=== PATIENT | female | born 1960 | race Caucasian/White ===

== ENCOUNTER 2016-08-07 12:37 | Observation (INO) | payer OTHER ==
[2016-08-07] VITALS (9 sets, daily range): BP systolic 116–134; BP diastolic 69–91; PULSE 55–67; RESP 16–17; O2SAT 95–97
[~2016-08-07] VITALS: Ht 172.7 cm; Wt 102.7 kg
[2016-08-07 13:08] LABS: BASOPHILS % (AUTO) 0.4 % (0-3); EOSINOPHILS % (AUTO) 3.8 % (0-5); MONOCYTES % (AUTO) 6.3 % (4-12); Mean Corpuscular Hemoglobin 30.4 pg (27.0-35.0); Mean Corpuscular Volume 87.8 fL (81-100); NEUTROPHILS % (AUTO) 43.8 % (40-74); Platelet Count 202 bil/L (150-400)
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
[2016-08-07 13:32] LABS: Magnesium 1.9 mg/dL (1.6-2.6)
[2016-08-07 13:38] LABS: TROPONIN T < 0.010 ug/L (0.0-0.011)
--- NOTE | 2016-08-07 13:46 | DRSVH ---
PROCEDURE: CT BRAIN WITHOUT CONTRAST ([id number]) INDICATIONS: head injury, difficulty speaking TECHNIQUE: Noncontrast 4.5 mm thick angled axial sections acquired from the foramen magnum to the vertex, with c oronal reformats. COMPARISON: None. FINDINGS: Image quality: Excellent. CSF spaces: Basal cisterns are patent. No extra-axial fluid collections. The ventricles are symmet louise in size and shape. Brain: No intracranial bleeds or masses. There is cerebral volume loss for age, with resultant vent ricular and sulcal prominence. There are periventricular and deep white matter chronic small vessel ischemic changes. There is intracranial internal carotid artery atherosclerosis. Skull and face: Calvarium and visualized facial bones appear intact, without suspicious lesions. Sinuses: Visualized sinuses and mastoids are clear. IMPRESSION: No acute intracranial abnormality. Dictated by: Dedra Teague M.D. on 08/07/2016 at 13:44 Approved by: Dedar Teague M.D. on 08/07/2016 at 13:44
--- NOTE | 2016-08-07 13:52 | DRSVH ---
PROCEDURE: X-RAY CHEST ONE VIEW, PORTABLE ([id number]) INDICATIONS: CP TECHNIQUE: One view of the chest was acquired. COMPARISON: [facility], CR, CHEST 2VW, 07/25/2010, 10:08. FINDINGS: Surgical changes and devices: None. Lungs and pleura: No pleural effusions or pneumothorax. Lungs are clear. Mediastinum: Mediastinal contours appear normal. Heart size is normal. Bones and chest wall: No suspicious bony lesions. Overlying soft tissues appear unremarkable. IMPRESSION: No acute process. Dictated by: Dedra Teague M.D. on 08/07/2016 at 13:49 Approved by: Dedra Teague M.D. on 08/07/2016 at 13:50
[2016-08-07] MEDS ORDERED: LEVO112T4 PO (14:35)
[2016-08-07] MEDS ORDERED: ACET-2605 PO (14:36)
[2016-08-07] MEDS ORDERED: Ondansetron 2 mg/mL 2 mL Inj IVPUSH PRN (15:45)
--- NOTE | 2016-08-07 15:53 | PCM.HPMED ---
Subjective Date of Service August 07, 2016 Primary Provider: Admitting Physician: Zeeshan Orozco MD Primary Care Physician: Joshua Beck MD Attending Physician: Zeeshan Orozco MD Chief Complaint: Presyncopal episode History of Present Illness: 56-year-old female with history of gastric sleeve and half years ago, hypothyroidism presented with presyncopal episode today. Patient was walking at the grocery store looking for fruits, significant felt "hot flushes, butterfly in the stomach", nausea, mild SOB, unusual sensation, blurry vision, lightheadedness. Patient was try to get some help, was not able to speak out, episode resolved after she got some rest, likely lasted 10min, brought by EMS to ED. pt remembered whole episode, didn't loose consciousness. Patient denied chest pain, tinnitus. pt had less severe but similar lightheadedness few times / week for the past 4weeks. Pt never had LOC. pt admitted that her work has been more stressful these days. pt denied postural dizziness, pt was not exertional when these episodes happened. ROS: denied fever, chills, n/v/c. has regular diarrhea 5-6times/d since gastric sleeve surgery, not increased recently, no recent travel, sick contacts, no urinary complaints. ED VSS, labs were unremarkable. EKG NSR, no pauses/blocks. CTH no acute findings. per family at the bedside, stated that pt was a bit confused earlier in ED but not now, pt currently c/o mild lightheadedness, mild difficulty of expressing her words. was also noted generalized tremors on hands, which also improved during ED course. Review of Systems: Pertinent positives as noted in history of present illness. All other systems were reviewed and are negative Allergies Coded Allergies: Contrast Media (Verified Allergy, Severe, Anaphylaxis, 08/07/16) Home Medications Levothyroxine Excedrin P.M. for sleeping PMH As described above Surgical History Gastric sleeve surgery Family History Mother and father had COPD, mother had CHF, at 60s Social History Hx Alcohol Use: No Hx Substance Use: No Hx Tobacco Use: Yes (quit 2000, smoked 1ppd for 10yrs) Smoking Status: Former Smoker Exam Vital Signs Vital Sign - Last Date Time Temp Pulse Resp B/P Pulse Ox O2 Delivery O2 Flow Rate FiO2 08/07/16 14:44 64 16 132/77 96 Room Air 08/07/16 12:42 36.5 Exam NAD, comfortably laying down on the bed no JVD, MMM, no LAD RRR, nl s1, s2 no mrg CTAB, no w,c S,ND,NT,normoactive BS+ warm, no edema, pulses 2/2 Neuro:speech coherent, fluent, AAOx3 PERRLA, EOMI, symmetric face, no uvulae tongue deviation, able shrug shoulders equally able rotate neck equally on both sides FTN intact, motor 5/5 throughout, sensory intact to dull touch Lab and Diagnostics Result Diagram: 08/07/16 1243 08/07/16 1243 X-Rays, CTs and MRIs PROCEDURE: X-RAY CHEST ONE VIEW, PORTABLE ([id number]) INDICATIONS: CP TECHNIQUE: One view of the chest was acquired. COMPARISON: [facility], CR, CHEST 2VW, 07/25/2010, 10:08. FINDINGS: Surgical changes and devices: None. Lungs and pleura: No pleural effusions or pneumothorax. Lungs are clear. Mediastinum: Mediastinal contours appear normal. Heart size is normal. Bones and chest wall: No suspicious bony lesions. Overlying soft tissues appear unremarkable. IMPRESSION: No acute process. Dictated by: Dedra Teague M.D. on 08/07/2016 at 13:49 Approved by: Dedra Teague M.D. on 08/07/2016 at 13:50 12-lead ECG NSR Assessment & Plan Acute, active Pre-syncopal episodes, POA, ddx: History is highly suspicious for vasovagal syncope vs cardiac arrhythmia. CTH/EKG WNL, neuro exam non-focal so far. -telemetry -MR stroke protocol -TTE -TSH, Ft4 -a1c, lipid panel for risks stratification, -s/p [id number], continue 81mg daily Chronic, stable hypothyroidism, continue Levothyroxine, check euthyroid state Dispo: Patient is admitted under observation status with expectation that she will be discharged within 24-48 hours, diet:cardiac dvt ppx:LMWH Full code Time spent 35min Zeeshan Orozco MD August 07, 2016 15:53
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
--- NOTE | 2016-08-07 17:11 | NUR ---
Diet waiver Pt passed RN swallow screen in ED this afternoon. Per stroke protocol, pt placed on a puree, HTL diet. Pt req to sign a waiver to allow a more generalized diet. Rationale explained to pt on why a puree/HTL diet ordered and stroke protocol. Also explained risks of choosing a general diet without being cleared by a speech pathologist. Pt is A&O, understands risk and chooses to sign waiver. Pt req ice water, drinking with no indicators of coughing/choking. Care is ongoing.
--- NOTE | 2016-08-07 22:49 | NUR ---
Activity On initial assessment, patient is alert and oriented x4 with no apparent deficits. Patient states that she does not feel confused as she did earlier in the day. Requested patient to use call light when ambulating to BR. VSS. Patient resting comfortably. Call light within reach. Care continues.
[2016-08-08 04:35] VITALS: BP 122/71; PULSE 62; RESP 17; O2SAT 97
[2016-08-08] MEDS ORDERED: ASPI81TA3 PO (08:16)
--- NOTE | 2016-08-08 10:49 | PCM.DIMED ---
Discharge Instructions Date of Service August 08, 2016 Dates of Hospitalization August 07, 2016 at 15:16 Discharge Diagnosis Discharge Diagnosis presyncopal episode, likely due to vasovagal vs TIA Diet Discharge Diet: No restrictions Activity Discharge Activity: No restrictions Call your provider Call your provider for: Shortness of breath, Chest pain Patient Instructions Patient Instructions You were hospitalized with symptoms concerning for stroke, monitored closely in the hospital. Your symptoms were completely resolved during hospitalization. MRI of brain and MRA of your head and neck were obtained, which didn't show any signs of stroke. Please note that aspirin was started, take 81mg daily for prevention of stroke. please stop taking if you notice black or bloody stools Follow-up Provider: Josuha Beck MD Follow-up with PCP in: 2 weeks Zeeshan Orozco MD August 08, 2016 10:49 Zeeshan Orozco MD August 08, 2016 10:49
--- NOTE | 2016-08-08 11:06 | DRSVH ---
PROCEDURE: MRI STROKE PROTOCOL ([id number]) Pre- and post-contrast brain MRI, non-contrast brain MR angiogram, pre- and postcontrast neck MR katherine ogram INDICATIONS: presyncopal episode TECHNIQUE: Brain: Noncontrast axial T1 spin echo, axial T2 fast spin echo, sagittal and axial FLAIR, coronal T2 fast spin echo, axial gradient echo, axial diffusion and ADC through the brain. After the administr ation of contrast, axial 3D VIBE of the cranial vasculature and brain. Brain MRA: Non-contrast 3-D time of flight MR angiogram, with multiple qpzcjum-vkejqxjoy-zmtdbjtjma (MIP) reformats performed. Neck MRA: Axial and sagittal TruFISP through the neck. Coronal dynamic MR angiogram during administ ration of contrast in the arterial and venous phases, with 3-dimenstional jwvqntc-ifputxvfb-wyfeniedu n (MIP) reformats constructed from subtraction images. COMPARISON: None. FINDINGS: Image quality: Excellent. BRAIN: CSF spaces: Ventricles are normal in size and shape. Basal cisterns are patent. No extra-axial flu id collections. Brain: No intracranial bleeds or mass effects. Reyez-white matter interface is normal. Diffusion we ighted images show no acute ischemic insults. Brainstem appears normal. Normal intravascular flow v oids are present. No abnormal intracranial enhancement. Skull and face: Calvarial marrow signal is normal. Orbits appear normal. Sinuses: Mild mucosal thickening noted in the right maxillary sinus. The mastoids are clear. BRAIN MR ANGIOGRAM: Anterior circulation: Intracranial internal carotid arteries are normal in size and enhancement. Th e flow within the paired anterior cerebral arteries is normal and symmetric. The flow within the mid dle cerebral arteries is normal and symmetric. The anterior communicating artery is seen. No stenos es, occlusions, or aneurysms. Posterior circulation: The visualized portions of the vertebral arteries demonstrate normal caliber, and join to form a normal appearing basilar artery. The flow within the posterior cerebral arteries is normal and symmetric. The left posterior cerebral artery has a origin which is a congenital anatomic variant. No stenoses, occlusions, or aneurysms. NECK MR ANGIOGRAM: Carotids: Great vessels demonstrate a conventional anatomy as they arise from the aortic arch. The origins of the common carotid arteries appear patent. The calibers and courses of both common caroti d arteries are normal. The bifurcation regions appear normal bilaterally. Mild atherosclerotic irreg ularity noted in the origins of the right internal carotid artery which causes less than 50% stenosis . Origin of the left internal carotid artery appears fully patent parapharyngeal loops noted in the c ervical segments of the internal carotid arteries bilaterally.. Posterior circulation: The origins of the vertebral arteries appear patent. Atherosclerotic irregula rity noted in the origin of the right vertebral artery which causes moderate stenosis. Origin the lef t vertebral artery appears fully patent. More superior portions of both vertebral arteries demonstra te normal course and caliber, and join to form a normal appearing basilar artery. Miscellaneous: Subclavian arteries appear patent. Pre-contrast images through the neck show no soft tissue abnormalities. IMPRESSION: BRAIN MRI: 1. No acute intracranial disease process. 2. No areas of acute or chronic infarction. 3. No abnormal postcontrast enhancement. BRAIN MR ANGIOGRAM: Negative examination. NECK MR ANGIOGRAM: 1. Less than 50% stenosis of the origin of the right internal carotid artery. 2. The left internal carotid artery is fully patent. 3. Moderate stenosis of the origin of the right vertebral artery. 4. The left vertebral artery is fully patent. The estimate of stenosis included in the report of the imaging study was calculated using the NASCET method Dictated by: Manuela Ross MD, PhD on 08/08/2016 at 10:47 Approved by: Manuela Ross MD, PhD on 08/08/2016 at 11:04
--- NOTE | 2016-08-08 11:27 | NUR ---
Discharge Pt d/c'd home at 1125. Reviewed d/c instructions w/ patient and answered all questions. IV d/c'd intact by SN1. Pt denied offer of w/c to her MIL's POV and left w/ hard copy of RX and all belonging. VSS, strong steady gait.
--- NOTE | 2016-08-08 12:13 | NUR ---
Social Work- Screen Note/Discharge Data: EMR reviewed. Pt is a 56 year old female admitted 08/07/16 under observation for TIA, pre-syncope per H&P. Pt received an MRI this morning. Pt was determined to be medical stable for discharge and discharged this morning prior to this note. Per chart review, pt resides in [place] with her spouse. Pt is independent at baseline. SW received notification from RN regarding pt's questions about her stroke protocol and insurance covering her medically necessary tests (MRI vs. carotid ultrasound) under stroke protocol. SW spoke with UR RN regarding this information, UR RN informed SW that whichever tests are ruled as medically necessary (either the MRI or the ultrasound) insurance will view as stroke protocol and bill as such. SW attempted to inform pt of this information when known but she was receiving pt care and then out of the room. Floor RN agreeable to updating pt regarding this information. Pt has no DPOA on file, per chart review pt declined this information when offered at admission. Pt discharged home via POV, no discharge needs identified. Assessment: Pt who is independent at baseline. Plan: Pt discharged home via POV, no discharge needs identified. Agatha Castle, [employer]
--- NOTE | 2016-08-08 15:10 | PCM.DC.MED ---
Discharge Summary Date of Service August 08, 2016 Dates of Hospitalization Date of Hospital Admission August 07, 2016 at 15:16 Date of Discharge: August 08, 2016 Providers: Admitting Physician: Zeeshan Tsai MD Primary Care Physician: Joshua Beck MD Attending Physician: Zeeshan Tsai MD Diagnosis at Time of Discharge Diagnosis at Time of Discharge Presyncopal episode, highly likely due to vasovagal, probable TIA Hypothyroidism Procedures XRay, CTs & MRIs PROCEDURE: MRI STROKE PROTOCOL ([id number]) Pre- and post-contrast brain MRI, non-contrast brain MR angiogram, pre- and postcontrast neck MR angiogram INDICATIONS: presyncopal episode TECHNIQUE: Brain: Noncontrast axial T1 spin echo, axial T2 fast spin echo, sagittal and axial FLAIR, coronal T2 fast spin echo, axial gradient echo, axial diffusion and ADC through the brain. After the administration of contrast, axial 3D VIBE of the cranial vasculature and brain. Brain MRA: Non-contrast 3-D time of flight MR angiogram, with multiple maximum- intensity-projection (MIP) reformats performed. Neck MRA: Axial and sagittal TruFISP through the neck. Coronal dynamic MR angiogram during administration of contrast in the arterial and venous phases, with 3-dimenstional sqmwbgo-tafjvrxbw-lpsverkooy (MIP) reformats constructed from subtraction images. COMPARISON: None. FINDINGS: Image quality: Excellent. BRAIN: CSF spaces: Ventricles are normal in size and shape. Basal cisterns are patent. No extra-axial fluid collections. Brain: No intracranial bleeds or mass effects. Reyez-white matter interface is normal. Diffusion weighted images show no acute ischemic insults. Brainstem appears normal. Normal intravascular flow voids are present. No abnormal intracranial enhancement. Skull and face: Calvarial marrow signal is normal. Orbits appear normal. Sinuses: Mild mucosal thickening noted in the right maxillary sinus. The mastoids are clear. BRAIN MR ANGIOGRAM: Anterior circulation: Intracranial internal carotid arteries are normal in size and enhancement. The flow within the paired anterior cerebral arteries is normal and symmetric. The flow within the middle cerebral arteries is normal and symmetric. The anterior communicating artery is seen. No stenoses, occlusions, or aneurysms. Posterior circulation: The visualized portions of the vertebral arteries demonstrate normal caliber, and join to form a normal appearing basilar artery. The flow within the posterior cerebral arteries is normal and symmetric. The left posterior cerebral artery has a origin which is a congenital anatomic variant. No stenoses, occlusions, or aneurysms. NECK MR ANGIOGRAM: Carotids: Great vessels demonstrate a conventional anatomy as they arise from the aortic arch. The origins of the common carotid arteries appear patent. The calibers and courses of both common carotid arteries are normal. The bifurcation regions appear normal bilaterally. Mild atherosclerotic irregularity noted in the origins of the right internal carotid artery which causes less than 50% stenosis. Origin of the left internal carotid artery appears fully patent parapharyngeal loops noted in the cervical segments of the internal carotid arteries bilaterally.. Posterior circulation: The origins of the vertebral arteries appear patent. Atherosclerotic irregularity noted in the origin of the right vertebral artery which causes moderate stenosis. Origin the left vertebral artery appears fully patent. More superior portions of both vertebral arteries demonstrate normal course and caliber, and join to form a normal appearing basilar artery. Miscellaneous: Subclavian arteries appear patent. Pre-contrast images through the neck show no soft tissue abnormalities. IMPRESSION: BRAIN MRI: 1. No acute intracranial disease process. 2. No areas of acute or chronic infarction. 3. No abnormal postcontrast enhancement. BRAIN MR ANGIOGRAM: Negative examination. NECK MR ANGIOGRAM: 1. Less than 50% stenosis of the origin of the right internal carotid artery. 2. The left internal carotid artery is fully patent. 3. Moderate stenosis of the origin of the right vertebral artery. 4. The left vertebral artery is fully patent. The estimate of stenosis included in the report of the imaging study was calculated using the NASCET method Dictated by: Manuela Ross MD, PhD on 08/08/2016 at 10:47 Approved by: Manuela Ross MD, PhD on 08/08/2016 at 11:04 PROCEDURE: CT BRAIN WITHOUT CONTRAST ([id number]) INDICATIONS: head injury, difficulty speaking TECHNIQUE: Noncontrast 4.5 mm thick angled axial sections acquired from the foramen magnum to the vertex, with coronal reformats. COMPARISON: None. FINDINGS: Image quality: Excellent. CSF spaces: Basal cisterns are patent. No extra-axial fluid collections. The ventricles are symmetric in size and shape. Brain: No intracranial bleeds or masses. There is cerebral volume loss for age , with resultant ventricular and sulcal prominence. There are periventricular and deep white matter chronic small vessel ischemic changes. There is intracranial internal carotid artery atherosclerosis. Skull and face: Calvarium and visualized facial bones appear intact, without suspicious lesions. Sinuses: Visualized sinuses and mastoids are clear. IMPRESSION: No acute intracranial abnormality. Dictated by: Dedra eTague M.D. on 08/07/2016 at 13:44 Approved by: Dedra Teague M.D. on 08/07/2016 at 13:44 PROCEDURE: X-RAY CHEST ONE VIEW, PORTABLE ([id number]) INDICATIONS: CP TECHNIQUE: One view of the chest was acquired. COMPARISON: [facility] [place], CR, CHEST 2VW, 07/25/2010, 10:08. FINDINGS: Surgical changes and devices: None. Lungs and pleura: No pleural effusions or pneumothorax. Lungs are clear. Mediastinum: Mediastinal contours appear normal. Heart size is normal. Bones and chest wall: No suspicious bony lesions. Overlying soft tissues appear unremarkable. IMPRESSION: No acute process. Dictated by: Dedra Teague M.D. on 08/07/2016 at 13:49 Approved by: Dedra Teague M.D. on 08/07/2016 at 13:50 ECG 12 Lead NSR Brief History HPI obtained on 08/07 56-year-old female with history of gastric sleeve and half years ago, hypothyroidism presented with presyncopal episode today. Patient was walking at the grocery store looking for fruits, significant felt "hot flushes, butterfly in the stomach", nausea, mild SOB, unusual sensation, blurry vision, lightheadedness. Patient was try to get some help, was not able to speak out, episode resolved after she got some rest, likely lasted 10min, brought by EMS to ED. pt remembered whole episode, didn't loose consciousness. Patient denied chest pain, tinnitus. pt had less severe but similar lightheadedness few times / week for the past 4weeks. Pt never had LOC. pt admitted that her work has been more stressful these days. pt denied postural dizziness, pt was not exertional when these episodes happened. ROS: denied fever, chills, n/v/c. has regular diarrhea 5-6times/d since gastric sleeve surgery, not increased recently, no recent travel, sick contacts, no urinary complaints. ED VSS, labs were unremarkable. EKG NSR, no pauses/blocks. CTH no acute findings. per family at the bedside, stated that pt was a bit confused earlier in ED but not now, pt currently c/o mild lightheadedness, mild difficulty of expressing her words. was also noted generalized tremors on hands, which also improved during ED course. Hospital Course Acute dx Pre-syncopal episodes, most likely vasovagal episode Although history was highly suspicious for vasovagal syncope, patient underwent basic syncope workups. Telemetry remained in sinus rhythms, intial CTH/EKG WNL, neuro exam was non-focal throughout. patient was given [id number], tolerated well. MR stroke protocol didn't show any signs of ischemic stroke. Given patient 's risks factors, smoking hx, probable TIA, it was recommended to continue aspirin 81mg daily. Patient was able ambulateon steady gait, non-focal on neuro exam, discharged to home Chronic dx hypothyroidism, continued Levothyroxine, in euthyroid state Exam Vital Signs (Last) Date Time Temp Pulse Resp B/P Pulse Ox O2 Delivery O2 Flow Rate FiO2 08/08/16 04:35 36.4 62 17 122/71 97 Room Air Exam NAD, comfortably laying down on the bed no JVD, MMM, no LAD RRR, nl s1, s2 no mrg CTAB, no w,c S,ND,NT,normoactive BS+ warm, no edema, pulses 2/2 Neuro:AAOx3, CN2-12 grossly intact Test 08/07/16 12:43 08/07/16 14:50 White Blood Count 7.3th/mm3 (3.8-10.1) Red Blood Count 4.74mil/mm3 (3.90-5.20) Hemoglobin 14.4g/dL (12.0-15.6) Hematocrit 41.6% (35.0-46.0) Mean Corpuscular Volume 87.8fL (81-100) Mean Corpuscular Hemoglobin 30.4pg (27.0-35.0) Mean Corpuscular Hemoglobin Concent 34.6% (32.0-37.0) Red Cell Distribution Width 12.4% (12.3-15.4) Platelet Count 202bil/L (150-400) Neutrophils (%) (Auto) 43.8% (40-74) Lymphocytes (%) (Auto) 45.6% (14-46) Monocytes (%) (Auto) 6.3% (4-12) Eosinophils (%) (Auto) 3.8% (0-5) Basophils (%) (Auto) 0.4% (0-3) Sodium Level 138mEq/L (134-144) Potassium Level 3.9mEq/L (3.5-5.2) Chloride Level 102mEq/L (97-108) Carbon Dioxide Level 20mmol/L (18-29) Blood Urea Nitrogen 12mg/dL (6-24) Creatinine 0.85mg/dL (0.57-1.00) Estimat Glomerular Filtration Rate 99mL/min (>59) Glucose Level 96mg/dL (60-99) Calcium Level 9.4mg/dL (8.5-10.1) Magnesium Level 1.9mg/dL (1.6-2.6) Total Bilirubin 0.4mg/dL (0.0-1.2) Aspartate Amino Transf (AST/SGOT) 23U/L (0-50) Alanine Aminotransferase (ALT/SGPT) 16U/L (0-32) Alkaline Phosphatase 72U/L (25-150) Troponin T < 0.010ug/L (0.0-0.011) Total Protein 6.6g/dL (6.4-8.4) Albumin 3.8g/dL (3.4-5.0) Thyroid Stimulating Hormone (TSH) 6.790uIU/mL (0.450-4.500) Free Thyroxine 1.08ng/dL (0.82-1.77) Discharge Medications Discharge Medications Acetaminophen/Diphenhydramine (Tylenol Pm Ex-Strength Caplet) 500 Mg-25 Mg Tablet 1 EACH PO HS (Reported) EXCEDRIN PM Aspirin Chew (Aspirin Chew) 81 Mg Chew 81 MG PO DAILY Prescribed by: ZEESHAN TSAI MD Levothyroxine (Levothyroxine) 112 Mcg Tablet 112 MCG PO QAM (Reported) Followup Plan Disposition: home Discharge Diet: No restrictions Discharge Activity: No restrictions Patient Instructions You were hospitalized with symptoms concerning for stroke, monitored closely in the hospital. Your symptoms were completely resolved during hospitalization. MRI of brain and MRA of your head and neck were obtained, which didn't show any signs of stroke. Please note that aspirin was started, take 81mg daily for prevention of stroke. please stop taking if you notice black or bloody stools Follow-up Provider: Joshua Beck MD Follow-up with PCP in: 2 weeks Time spent 65min Zeeshan Tsai MD August 08, 2016 11:56
== END 2016-08-08 11:25 | disposition home or self-care (01) ==
LOC: SED 12:37 → OSC 15:16
PROVIDERS: ADMIT Internal Medicine; ATTEND Internal Medicine
DX: R55 Syncope and collapse (principal); E03.9 Hypothyroidism, unspecified; Z91.041 Radiographic dye allergy status; Z98.84 Bariatric surgery status; Z87.891 Personal history of nicotine dependence
CPT/HCPCS: 36415; 70450; 70549; 70553; 71010; 80053; 82948; 83735; 84439; 84443; 84484; 85025; 93005; 99285; A9585; G0378